=== PATIENT | female | born 1955 | race Caucasian/White ===

== ENCOUNTER 2024-09-03 19:06 | Inpatient (IN) | payer MEDICARE ==
[2024-09-03 19:40] LABS: BASOPHILS PERCENT AUTO 0.4 % (0.1-1.3); EOSINOPHILS ABSOLUTE AUTO 0.02 K/uL (0.00-0.40); EOSINOPHILS PERCENT AUTO 0.1 % (0.0-5.4); HEMATOCRIT 39.7 % (34.3-46.0); IMMATURE GRAN ABSOLUTE AUTO 0.14 K/uL (0.00-0.23); IMMATURE GRAN PERCENT AUTO 0.6 % (0.0-0.7); LYMPHOCYTES ABSOLUTE AUTO 0.96 K/uL (0.8-3.3); MEAN CORPUSCULAR HEMOGLOBIN 28.9 pg (31.6-35.5); MEAN CORPUSCULAR HGB CONC 32.7 g/dL (31.6-35.5); MEAN CORPUSCULAR VOLUME 88.2 fL (81.4-99.0); MONOCYTES ABSOLUTE AUTO 1.42 K/uL (0.20-0.90); MONOCYTES PERCENT AUTO 5.8 % (3.3-12.6); NEUTROPHILS ABSOLUTE AUTO 21.64 K/uL (1.0-7.6); NEUTROPHILS PERCENT AUTO 89.1 % (40.0-78.1); PLATELET COUNT,PLT 270 K/uL (130-375); WHITE BLOOD CELL COUNT,WBC 24.3 K/uL (3.2-11.0)
[2024-09-03 19:56] LABS: A/G RATIO 0.9 (1.2-2.2); ALANINE AMINOTRANSFERASE,ALT 17 U/L (12-78); ALBUMIN 3.8 g/dL (3.4-5.0); ALKALINE PHOSPHATASE 64 U/L (46-116); ASPARTATE AMNIOTRANSFERASE,AST 22 U/L (15-37); BILIRUBIN TOTAL 0.7 mg/dL (0.2-1.0); BLOOD UREA NITROGEN,BUN 11 mg/dL (7-18); CALCIUM 9.8 mg/dL (8.5-10.1); CARBON DIOXIDE,CO2 32 mmol/L (21-32); CHLORIDE,CL 95 mmol/L (100-108); CREATININE 0.9 mg/dL (0.6-1.0); ESTIMATED GFR 68 mL/min (>60); GLUCOSE RANDOM 114 mg/dL (74-106); PROTEIN TOTAL,TP 7.9 g/dL (6.4-8.2); SODIUM,NA 134 mmol/L (140-148)
[2024-09-03] MEDS: Ondansetron 4 MG/2 ML SDV IVPUSH ONE (19:58)
[2024-09-03] MEDS: Morphine 4 MG/ML Syringe IVPUSH ONE (19:58)
[2024-09-03] MEDS: Sodium Chloride 0.9% 1,000 ML IV SCH ×2 (21:03→23:30)
[2024-09-03] MEDS: Sodium Chloride 0.9% 100 ML IV SCH (21:50)
[2024-09-03] MEDS: Iopamidol 755 Mg/ML 100 ML Bottle IV SCH (21:51)
[2024-09-03] MEDS ORDERED: Azithromycin 500 MG Vial IV ONE (22:47)
[2024-09-03] MEDS: cefTRIAXone 1 GM in Sodium Chloride 0.9% 50 ML IV ONE (23:02)
[2024-09-04] MEDS: Azithromycin 500 MG in Sodium Chloride 0.9% 250 ML IV ONE (00:50)
[2024-09-04] MEDS ORDERED: Ondansetron 4 MG/2 ML SDV IV PRN (01:37)
[2024-09-04] MEDS ORDERED: Ondansetron 4 MG Tab.DIS PO PRN (01:37)
[2024-09-04] MEDS ORDERED: Acetaminophen 325 MG Tab PO PRN (01:37)
[2024-09-04] MEDS ORDERED: Magnesium Hydroxide 400 MG/5 ML Susp 30 ML Cup PO PRN (01:37)
[2024-09-04] MEDS ORDERED: Sennosides/Docusate Sodium 50-8.6 MG Tab PO PRN (01:37)
[2024-09-04] MEDS ORDERED: Melatonin 3 MG Tab PO PRN (01:37)
[2024-09-04] MEDS: Sodium Chloride 0.9% 500 ML IV ONE (02:02)
[2024-09-04] MEDS: Albuterol/Ipratropium 3.0-0.5 MG/3 ML Neb Soln NEB ONE (02:03)
[2024-09-04] MEDS: Morphine 15 MG Tab.ER PO SCH (05:58)
[2024-09-04 06:00] LABS: HEMOGLOBIN 11.6 g/dL (11.2-15.5); MEAN CORPUSCULAR HEMOGLOBIN 29.2 pg (31.6-35.5); MEAN CORPUSCULAR HGB CONC 32.2 g/dL (31.6-35.5); MEAN CORPUSCULAR VOLUME 90.7 fL (81.4-99.0); RED BLOOD CELL COUNT 3.97 M/uL (3.77-5.24); WHITE BLOOD CELL COUNT,WBC 22.3 K/uL (3.2-11.0)
[2024-09-04 06:18] LABS: CREATININE 0.9 mg/dL (0.6-1.0); EST CRCL DRUG DOSING (CG) 38.75 mL/min; POTASSIUM,K 4.4 mmol/L (3.6-5.2)
[2024-09-04 06:20] LABS: ANION GAP 11.4 mmol/L (5.0-14.0)
[2024-09-04] MEDS: Albuterol/Ipratropium 3.0-0.5 MG/3 ML Neb Soln NEB SCH (06:55)
[2024-09-04] MEDS: Pantoprazole 40 MG Tab.CR PO SCH (07:55)
[2024-09-04] MEDS: Sodium Chloride 0.9% 1,000 ML IV SCH (08:04)
[2024-09-04] MEDS: Sertraline 50 MG Tab PO SCH (08:30)
[2024-09-04] MEDS: Lactobacillus Rhamnosus GG (Probiotic) Cap PO SCH (08:30)
[2024-09-04] MEDS: oxyCODONE 5 MG Tab PO PRN (11:05)
[2024-09-04] MEDS ORDERED: cefTRIAXone 1 GM in Sodium Chloride 0.9% 50 ML IV SCH (23:00)
== END 2024-09-04 14:00 | disposition home or self-care (01) | DRG 193 ==
LOC: JP.ED 19:06 → JP.ICU 09-04 00:35
PROVIDERS: ADMIT Registered Nurse; ATTEND Internal Medicine
DX: J18.9 Pneumonia, unspecified organism (principal); J15.9 Unspecified bacterial pneumonia; J96.21 Acute and chronic respiratory failure with hypoxia; J44.9 Chronic obstructive pulmonary disease, unspecified; C34.90 Malignant neoplasm of unspecified part of unspecified bronchus or lung; C79.02 Secondary malignant neoplasm of left kidney and renal pelvis; C79.01 Secondary malignant neoplasm of right kidney and renal pelvis; J44.0 Chronic obstructive pulmonary disease with (acute) lower respiratory infection; I10 Essential (primary) hypertension; M19.90 Unspecified osteoarthritis, unspecified site; F17.210 Nicotine dependence, cigarettes, uncomplicated; M48.00 Spinal stenosis, site unspecified; F41.9 Anxiety disorder, unspecified; Z98.890 Other specified postprocedural states; Z79.899 Other long term (current) drug therapy; I25.2 Old myocardial infarction; Z79.891 Long term (current) use of opiate analgesic; Z90.49 Acquired absence of other specified parts of digestive tract; Z98.1 Arthrodesis status
CPT/HCPCS: 36415; 71275; 80053; 83605; 84484 ×2; 85025; 85379; 87040 ×2; 93005; J0696; J2270; J2405; J7030 ×2; Q9967; 36556; 80048; 85027; 93010; 94640; 96361; 96365; 96375; 99222; 99238; 99285; 99285-25; A9270-GY; J0456; J7040; J7050